=== PATIENT | male | born 1955 | race Caucasian/White ===

== ENCOUNTER 2024-06-19 07:48 | Emergency (ER) | payer OTHER ==
[~2024-06-19] VITALS: Ht 165.1 cm; Wt 80.0 kg
[2024-06-19 07:58] VITALS: BP 177/78; PULSE 58; RESP 16; TEMP 98.1; O2SAT 96
[2024-06-19 08:34] LABS: BASOPHILS % 0.4 % (0.0-2.0); EOSINOPHILS % 1.7 % (0.0-5.0); HEMATOCRIT. 51.5 % (42.0-52.0); HEMOGLOBIN. 17.5 g/dL (14.0-18.0); LYMPHOCYTES % 31.3 % (20.0-50.0); MEAN CORPUSCULAR HEMOGLOBIN 30.1 pg (28.0-32.0); MEAN CORPUSCULAR VOLUME 88.4 fL (80.0-94.0); MEAN PLATELET VOLUME 6.9 fl (7.4-10.4); MONOCYTES % 7.5 % (2.0-8.0); NEUTROPHILS % 59.1 % (40.0-76.0); PLATELET 300 x1000/uL (130-400); RED BLOOD CELL COUNT 5.82 mill/uL (4.7-6.1); RED CELL DISTRIBUTION WIDTH 13.4 % (11.6-14.6); WHITE BLOOD COUNT 7.6 x1000/uL (4.5-11.0)
[2024-06-19 08:44] LABS: CLARITY URINE CLEAR (CLEAR); COLOR URINE DARK YELLOW (YELLOW); GLUCOSE URINE NEGATIVE (NEGATIVE); KETONES URINE TRACE (NEGATIVE); LEUKOCYTE ESTERASE URINE TRACE (NEGATIVE); NITRITE URINE NEGATIVE (NEGATIVE); OCCULT BLOOD URINE NEGATIVE (NEGATIVE); PH URINE 5.5 (4.5-8.0); PROTEIN URINE TRACE (NEGATIVE); SPECIFIC GRAVITY URINE 1.028 (1.005-1.030)
[2024-06-19 08:46] LABS: CHLORIDE 103 mEq/L (98-107); POTASSIUM 4.6 mEq/L (3.5-5.1); SODIUM 135 mEq/L (136-145)
[2024-06-19 08:47] LABS: CALCIUM 9.9 mg/dL (8.7-10.4); CARBON DIOXIDE 27 mEq/L (21-32)
[2024-06-19 08:52] LABS: CREATININE 1.1 mg/dL (0.6-1.3); GLUCOSE 146 mg/dL (70-105); UREA NITROGEN BLOOD 11 mg/dL (9-23)
[2024-06-19 09:12] LABS: BACTERIA URINE 1+; RBC URINE NONE SEEN /hpf (0-2); SQUAMOUS EPITHELIAL CELL URINE FEW /lpf (RARE/1+); WBC URINE 0-2 /hpf (0-2); YEAST URINE NONE SEEN
[2024-06-19] MEDS ORDERED: CLIN-194 MT (09:42)
== END 2024-06-19 10:28 | disposition home or self-care (01) ==
LOC: ER 07:59
DX: L03.115 Cellulitis of right lower limb (principal)
CPT/HCPCS: 36415; 80048; 81003; 85025; 99283